=== PATIENT | female | born 1980 | race American Indian/Alaskan Native ===

== ENCOUNTER 2017-09-26 10:38 | Emergency (ER) | payer SELFPAY ==
[2017-09-26] MEDS ORDERED: TYLENOL ONE (12:44)
[2017-09-26] MEDS ORDERED: TYLENOL PO ONE (12:47)
--- NOTE | 2017-09-26 15:22 | Emergency Department Report ---
ED Fall HPI - General Chief Complaint: Extremity Injury, Lower Stated Complaint: BACK/LEG/NECK PAIN/FALL Time Seen by Provider: 09/26/17 15:11 Source: patient Mode of arrival: Ambulatory Limitations: No Limitations - History of Present Illness Initial Comments: This is a 37-year-old female presents with right knee pain and left arm pain from falling yesterday and [email or web address]. Patient reports shopping at [email or web address] yesterday around 1900 and slipping on water falling to the ground. Patient reports falling forward landing on right knee, she stopped fall with left arm. She is applying ice to right hip and knee and taking Motrin for pain. Patient reports waking up this morning and then could barely apply pressure to the right lower extremity. Denies numbness or tingling, swelling, chest pain, palpitations, loss of consciousness, and nausea or vomiting. MD Complaint: fall -: Last night Time: 19:00 Fall From: standing When Fall Occurred: other (10-12 hours PEDIATRIC PSYCHIATRIST) Fall Witnessed: yes, by family Place Fall Occurred: other ([email or web address] shopping center) Loss of Consciousness: none Prolonged Down Time?: no Symptoms Prior to Fall: none Location: back (lower back) Location - Extremities: Left: Arm, Right: Knee Severity: moderate Severity scale (0 -10): 7 Quality: aching Context: tripped/slipped Associated Symptoms: headache - Related Data Previous Rx's Medication Instructions Recorded Last Taken Type Ondansetron [Zofran Odt] 4 mg PO Q6HR #20 tab.rapdis 12/10/14 Unknown Rx Ranitidine HCl [Zantac 150 MG TAB] 150 mg PO BID #60 tablet 12/10/14 Unknown Rx Ibuprofen [Motrin 800 MG tab] 800 mg PO Q8HR PRN #15 tablet 01/19/16 Unknown Rx Cyclobenzaprine HCl [Flexeril 5 MG 5 mg PO TID PRN #15 tab 09/26/17 Unknown Rx TAB] Ibuprofen [Motrin 800 MG tab] 800 mg PO Q8HR PRN #15 tablet 09/26/17 Unknown Rx Allergies Allergy/AdvReac Type Severity Reaction Status Date / Time acetaminophen [From Percocet] Allergy Vomiting Verified 01/19/16 19:06 lisinopril Allergy Angioedema Verified 01/19/16 19:06 oxycodone HCl [From Percocet] Allergy Vomiting Verified 01/19/16 19:06 ED Review of Systems ROS: Stated complaint: BACK/LEG/NECK PAIN/FALL Other details as noted in HPI Constitutional: denies: chills, fever Respiratory: denies: cough, shortness of breath, wheezing Cardiovascular: denies: chest pain, palpitations Gastrointestinal: denies: abdominal pain, nausea, vomiting, diarrhea Musculoskeletal: back pain (bilateral lower back), arthralgia (left forearm, right knee). denies: joint swelling Neurological: denies: headache, weakness, numbness, paresthesias Psychiatric: denies: anxiety, depression ED Past Medical Hx - Past Medical History Previous Medical History?: Yes Hx Hypertension: Yes Hx Asthma: Yes - Surgical History Past Surgical History?: Yes Additional Surgical History: . left wrist surgery. TUMOR RIGHT LUNG REMOVED - Social History Smoking Status: Never Smoker Substance Use Type: None - Medications Home Medications: Home Medications Medication Instructions Recorded Confirmed Last Taken Type Ondansetron [Zofran Odt] 4 mg PO Q6HR #20 tab.rapdis 12/10/14 Unknown Rx Ranitidine HCl [Zantac 150 MG TAB] 150 mg PO BID #60 tablet 12/10/14 Unknown Rx Ibuprofen [Motrin 800 MG tab] 800 mg PO Q8HR PRN #15 tablet 01/19/16 Unknown Rx Cyclobenzaprine HCl [Flexeril 5 MG 5 mg PO TID PRN #15 tab 09/26/17 Unknown Rx TAB] Ibuprofen [Motrin 800 MG tab] 800 mg PO Q8HR PRN #15 tablet 09/26/17 Unknown Rx ED Physical Exam - General Limitations: No Limitations General appearance: alert, in no apparent distress - Respiratory Respiratory exam: Present: normal lung sounds bilaterally. Absent: respiratory distress - Cardiovascular Cardiovascular Exam: Present: regular rate, normal rhythm. Absent: systolic murmur, diastolic murmur, rubs, gallop - GI/Abdominal GI/Abdominal exam: Present: soft, normal bowel sounds - Extremities Exam Extremities exam: Present: full ROM, normal capillary refill. Absent: pedal edema, joint swelling, calf tenderness - Expanded Upper Extremity Exam Left Shoulder Exam: Present: normal inspection, full ROM Upper Arm exam: Present: normal inspection, full ROM Elbow exam: Present: normal inspection, full ROM Forearm Wrist exam: Present: full ROM, tenderness (medial radial). Absent: swelling, abrasion, laceration, ecchymosis, deformity, crepidus, dislocation, erythema, tenderness over anatomical snuff box, pain with axial thumb loading Hand Wrist exam: Present: normal inspection, full ROM Neuro motor exam: Present: wrist extension intact, thumb opposition intact, thumb IP flexion intact, thumb adduction intact, fingers 2-5 abduction intact Neurosensory exam: Present: radial nerve intact, ulnar nerve intact, median nerve intact Vascular: Present: normal capillary refill - Back Exam Back exam: Present: full ROM, paraspinal tenderness (right sacral iliac ). Absent: CVA tenderness (R), CVA tenderness (L), rash noted - Neurological Exam Neurological exam: Present: alert, oriented X3 - Psychiatric Psychiatric exam: Present: normal affect, normal mood - Skin Skin exam: Present: warm, dry, intact, normal color. Absent: rash ED Course Vital Signs 09/26/17 09/26/17 09/26/17 10:58 12:48 18:12 Temperature 98.5 F 98.5 F Pulse Rate 82 71 Respiratory 20 18 15 Rate Blood Pressure 143/106 Blood Pressure 157/108 [Right] O2 Sat by Pulse 100 100 Oximetry 09/26/17 18:18 Temperature Pulse Rate 71 Respiratory Rate Blood Pressure 157/108 Blood Pressure [Right] O2 Sat by Pulse Oximetry ED Medical Decision Making - Radiology Data Radiology results: report reviewed LUMBAR SPINE RADIOGRAPHS INDICATION: Low back pain, status post fall. COMPARISON: None similar. FINDINGS: AP and lateral lumbar spine radiographs demonstrate slight levocurvature apex about L4, possibly positional versus scoliosis. Normal vertebral body stature. Preserved disc heights except for slight L5-S1 disc narrowing not excluded. Nonobstructive bowel gas pattern. Intact SI joints. Few pelvic phleboliths. CONCLUSION: No acute radiographic abnormality, as described. EXAM: XR KNEE 3V RT HISTORY: right knee pain s/p fall TECHNIQUE: Right knee 3 views PRIORS: None. FINDINGS: No fracture is identified. No dislocation seen. No evidence of joint effusion. Patella demonstrates normal positioning. No acute bony abnormality identified. IMPRESSION: Negative knee series LEFT FOREARM RADIOGRAPHS INDICATION: Left lateral forearm pain, status post fall. COMPARISON: None similar. FINDINGS: AP and lateral left forearm radiographs demonstrate normal bones and soft tissues. Included elbow and wrist articulations also appear grossly within normal limits. CONCLUSION: No acute radiographic abnormality. - Medical Decision Making This is a 37-year-old female who presents with right lower extremity pain and left upper extremity pain from a fall yesterday. History of HTN and asthma. Blood pressure slightly elevated, patient is asymptomatic. Patient has no acute distress. Given tramadol 50 mg by mouth, clonidine 0.1 mg by mouth once while in the ER. I obtained x-ray of L-spine, left forearm, and right knee all read by radiologist. Reviewed report and no acute findings on all scans. Start ibuprofen 800 mg every 6 hours as needed for pain. Patient instructed to follow up with primary care provider for further management of pain and blood pressure. She was instructed to keep a blood pressure log and take it to PCP appointment in 2-3 days. Critical care attestation.: If time is entered above; I have spent that time in minutes in the direct care of this critically ill patient, excluding procedure time. ED Disposition Clinical Impression: Strain of muscle, fascia and tendon of lower back, initial encounter, Right hip pain, Asymptomatic hypertension Strain of right knee Qualifiers: Encounter type: initial encounter Qualified Code(s): S86.911A - Strain of unspecified muscle(s) and tendon(s) at lower leg level, right leg, initial encounter Fall Qualifiers: Encounter type: initial encounter Qualified Code(s): W19.XXXA - Unspecified fall, initial encounter Disposition: TO HOME OR SELFCARE Is pt being admited?: No Does the pt Need Aspirin: No Condition: Stable Instructions: Muscle Strain (ED), Arthralgia (ED), Hypertension (ED) Additional Instructions: Rest Use ice or heat on affected area for 20 minutes and off for 2 hours. Take pain medication as needed for pain. Don't drive or operate heavy machinery while taking muscle relaxers because they may cause drowsiness. Follow up with Primary Care Provider in 2-3 days. Prescriptions: Cyclobenzaprine HCl [Flexeril 5 MG TAB] 5 mg PO TID PRN #15 tab PRN Reason: Muscle Spasm Ibuprofen [Motrin 800 MG tab] 800 mg PO Q8HR PRN #15 tablet PRN Reason: Pain, Moderate (4-6) Referrals: ANNELISE CARROLL MD [Staff Physician] - 3-5 Days Time of Disposition: 18:00 Print Language: CHADIAN
[2017-09-26 15:49] LABS: HCG Qualitative,Urine Negative (Negative)
--- NOTE | 2017-09-26 16:33 | XRay Report ---
LEFT FOREARM RADIOGRAPHS INDICATION: Left lateral forearm pain, status post fall. COMPARISON: None similar. FINDINGS: AP and lateral left forearm radiographs demonstrate normal bones and soft tissues. Included elbow and wrist articulations also appear grossly within normal limits. CONCLUSION: No acute radiographic abnormality. Thank you for the opportunity to participate in this patient's care.
--- NOTE | 2017-09-26 16:35 | XRay Report ---
LUMBAR SPINE RADIOGRAPHS INDICATION: Low back pain, status post fall. COMPARISON: None similar. FINDINGS: AP and lateral lumbar spine radiographs demonstrate slight levocurvature apex about L4, possibly positional versus scoliosis. Normal vertebral body stature. Preserved disc heights except for slight L5-S1 disc narrowing not excluded. Nonobstructive bowel gas pattern. Intact SI joints. Few pelvic phleboliths. CONCLUSION: No acute radiographic abnormality, as described. Thank you for the opportunity to participate in this patient's care.
[2017-09-26] MEDS ORDERED: MOTRIN PO ONE (17:08)
--- NOTE | 2017-09-26 17:17 | XRay Report ---
FINAL REPORT EXAM: XR KNEE 3V RT HISTORY: right knee pain s/p fall TECHNIQUE: Right knee 3 views PRIORS: None. FINDINGS: No fracture is identified. No dislocation seen. No evidence of joint effusion. Patella demonstrates normal positioning. No acute bony abnormality identified. IMPRESSION: Negative knee series
[2017-09-26] MEDS ORDERED: CATAPRES PO ONE (18:13)
[2017-09-26 18:57] VITALS: BP 172/104
== END 2017-09-26 18:57 | disposition home or self-care (01) ==
LOC: ED 10:38
DX: S86.911A Strain of unspecified muscle(s) and tendon(s) at lower leg level, right leg, initial encounter (principal); S39.012A Strain of muscle, fascia and tendon of lower back, initial encounter; I10 Essential (primary) hypertension; J45.909 Unspecified asthma, uncomplicated; Z88.8 Allergy status to other drugs, medicaments and biological substances; Z88.5 Allergy status to narcotic agent; Z88.6 Allergy status to analgesic agent; W01.0XXA Fall on same level from slipping, tripping and stumbling without subsequent striking against object, initial encounter; Y93.89 Activity, other specified; Y92.89 Other specified places as the place of occurrence of the external cause; Y99.8 Other external cause status
CPT/HCPCS: 72100; 81025; 99284

== ENCOUNTER 2021-05-24 13:27 | Outpatient (CLI) | payer OTHER | END 2021-05-24 13:28 | disposition home or self-care (01) | LOC: LABHHL 13:27 | PROVIDERS: ATTEND Surgery | DX: N63.12 Unspecified lump in the right breast, upper inner quadrant (principal) | CPT/HCPCS: 88305 ==